=== PATIENT | female | born 2000 | race Hispanic/Latino ===

== ENCOUNTER 2024-07-22 18:00 | Inpatient (IN) | payer BC ==
[2024-07-22] MEDS ORDERED: Lidocaine 1% (PF) 30 ML VIAL SC PRN (21:15)
[2024-07-22] MEDS ORDERED: Carboprost 250 MCG/ML AMP IM PRN (21:15)
[2024-07-22] MEDS ORDERED: Diphenoxylate HCl/Atropine Tablet PO PRN (21:15)
[2024-07-22] MEDS ORDERED: Ondansetron PF 4 MG/2 ML Vial IVP PRN (21:15)
[2024-07-22] MEDS ORDERED: hydrALAZINE 20 MG/ML VIAL SLOW IVP PRN (21:15)
[2024-07-22] MEDS ORDERED: Promethazine HCl 25 MG/ML VIAL IM PRN (21:15)
[2024-07-22 21:42] LABS: Hematocrit 35.7 % (34.9-44.5); Hemoglobin 11.3 g/dL (12.0-15.5); Mean Corpuscular HGB CONC 31.7 g/dL (32.0-36.0); Mean Corpuscular Volume 85.2 fL (81.6-98.3); Mean Platelet Volume 10.7 fL (7.4-10.4); Platelet Count 241 10x3/uL (150-450); RBC Distribution Width 15.9 % (11.5-14.5); Red Blood Cell (RBC) Count 4.19 10x6/uL (3.90-5.03); White Blood Cell (WBC) Count 8.1 10x3/uL (3.5-10.5)
[2024-07-22] MEDS: Lactated Ringer's 1,000 ML IV SCH (21:45)
[2024-07-22] MEDS ORDERED: Methylergonovine 0.2 MG/ML VIAL IM PRN (21:54)
[2024-07-22] MEDS: Misoprostol 100 MCG TAB VAG SCH (22:05)
[2024-07-22 22:09] LABS: HBsAg Index 0.27 S/CO (0-0.99); Hep B Surf Ag - L&D Non-Reactive S/CO (NonReactive)
[2024-07-22 22:10] LABS: Syphilis Antibody Nonreactive (Nonreactive); Syphilis Antibody Index 0.12 S/CO (<1.00 Non-Reactive)
[2024-07-23] MEDS: Acetaminophen 500 MG TAB PO PRN (00:32)
[2024-07-23] MEDS: Oxytocin 30 units/NS 500 ML 500 ML IV SCH (01:27)
[2024-07-23] MEDS: fentaNYL/Ropivacaine Epidural 100 ML ONE (05:16)
[2024-07-23] MEDS ORDERED: Moisturizing Cream (Eucerin) 113 GM JAR TOP PRN (05:32)
[2024-07-23] MEDS ORDERED: Lactated Ringer's 500 ML IV PRN (05:32)
[2024-07-23] MEDS ORDERED: Ondansetron PF 4 MG/2 ML Vial IVP PRN (05:32)
[2024-07-23] MEDS ORDERED: Acetaminophen 325 MG TAB PO PRN (05:32)
[2024-07-23] MEDS ORDERED: Promethazine HCl 25 MG/ML VIAL IM PRN (05:32)
[2024-07-23] MEDS ORDERED: Naloxone HCl 0.4 mg/ml Vial IVP PRN ×2 (05:32)
[2024-07-23] MEDS ORDERED: ePHEDrine Sulfate 50 MG/10 ML VIAL SLOW IVP PRN (05:32)
[2024-07-23] MEDS ORDERED: Communication Order-Pharmacy FS SCH (05:45)
[2024-07-23] MEDS: diphenhydrAMINE 50 MG/ML VIAL IVP PRN (19:33)
[2024-07-23] MEDS: Calcium Carbonate 500 MG ChewTAB PO SCH (19:43)
[2024-07-23] MEDS: fentaNYL 2 mcg/Ropivacaine 0.2% Epidural 100 ML CADD EPIDURAL SCH (23:22)
[2024-07-24] MEDS: Tranexamic Acid 1,000 MG/10 ML VIAL IVP PRN (04:15)
[2024-07-24] MEDS: Oxytocin 30 units/NS 500 ML 500 ML IV SCH (04:30)
[2024-07-24] MEDS ORDERED: Preparation H Ointment 28 GM TUBE PR PRN (05:08)
[2024-07-24] MEDS ORDERED: Lanolin Ointment 7 GM TUBE TOP PRN (05:08)
[2024-07-24] MEDS ORDERED: Bisacodyl 10 MG SUPP PR PRN (05:08)
[2024-07-24] MEDS ORDERED: Milk Of Magnesia 30 ML UDCUP PO PRN (05:08)
[2024-07-24] MEDS ORDERED: hydrALAZINE 20 MG/ML VIAL SLOW IVP PRN (05:08)
[2024-07-24] MEDS ORDERED: Bisacodyl 5 MG TAB PO PRN (05:24)
[2024-07-24] MEDS ORDERED: HYDROcodone/Acetaminophen 5/325 mg Tablet PO PRN (05:28)
[2024-07-24] MEDS ORDERED: Ibuprofen 800 MG TAB PO SCH ×2 (05:30→22:00)
[2024-07-24] MEDS ORDERED: Tranexamic Acid 1,000 MG in Sodium Chloride 0.9% 250 ML 250 ML IVPB ONE (05:32)
[2024-07-24] MEDS: Misoprostol 200 MCG TAB PR PRN (05:43)
[2024-07-24 05:51] LABS: #Basophils 0.03 10x3/uL (0.0-0.2); #Eosinophils 0.17 10x3/uL (0.0-0.5); #Monocytes 0.73 10x3/uL (0.0-1.1); #Neutrophils 14.17 10x3/uL (1.5-8.4); %Basophils 0.2 % (0.0-2.0); %Eosinophils 1.1 % (0.0-6.0); %Lymphocytes 5.8 % (18.0-47.0); %Monocytes 4.5 % (0.0-10.0); %Neutrophils 87.9 % (40.0-75.0); Hematocrit 28.3 % (34.9-44.5); Hemoglobin 9.1 g/dL (12.0-15.5); Mean Corpuscular HGB CONC 32.2 g/dL (32.0-36.0); Mean Corpuscular Hemoglobin 27.5 pg (27.0-33.0); Mean Corpuscular Volume 85.5 fL (81.6-98.3); Mean Platelet Volume 10.6 fL (7.4-10.4); Platelet Count 195 10x3/uL (150-450); RBC Distribution Width 16.1 % (11.5-14.5); Red Blood Cell (RBC) Count 3.31 10x6/uL (3.90-5.03); White Blood Cell (WBC) Count 16.1 10x3/uL (3.5-10.5)
[2024-07-24] MEDS: Ibuprofen 800 MG TAB PO PRN (05:59)
[2024-07-24] MEDS ORDERED: Bupivacaine/Epinephrine 0.25% 30 ML VIAL ONE (06:00)
[2024-07-24] MEDS ORDERED: Piperacillin/Tazobactam 4.5 GM in Sodium Chloride 0.9% 100 ML IVPB SCH (06:00)
[2024-07-24 06:09] LABS: D-Dimer Test 5.27 mcg/mL (0.19-0.50); Prothrombin Time 10.7 sec (9.5-12.1)
[2024-07-24] MEDS: Piperacillin/Tazobactam 3.375 GM in Sodium Chloride 0.9% 100 ML IVPB SCH (06:40)
[2024-07-24] MEDS: HYDROcodone/Acetaminophen 5/325 mg Tablet PO PRN (07:26)
[2024-07-24] MEDS: Polyethylene Glycol 3350 17 GM Packet PO SCH (08:31)
[2024-07-24] MEDS: Ferrous Sulfate 325 MG TAB PO SCH (08:31)
[2024-07-24] MEDS: Docusate 100 MG CAP PO SCH (08:31)
[2024-07-24] MEDS: fentaNYL 50 mcg/mL 1 mL Vial ONE (10:38)
[2024-07-24] MEDS: Measles/Mumps/Rubella 10 MCG/0.5 ML VIAL SC ONE (11:38)
[2024-07-24] MEDS: Boostrix 0.5 ML (Tdap) VIAL (>/=7 yrs of age) IM ONE (11:47)
[2024-07-24] MEDS ORDERED: Simethicone Chewable 80 MG TAB PO PRN (15:39)
[2024-07-24] MEDS: Benzocaine-Menthol 82.5 ML CAN TOP PRN (17:36)
[2024-07-24] MEDS: Ibuprofen 800 MG TAB PO SCH (21:35)
[2024-07-25 07:39] VITALS: BP 97/55; TEMP 97.5
[2024-07-25] MEDS: Measles/Mumps/Rubella 10 MCG/0.5 ML VIAL SC ONE (15:20)
== END 2024-07-25 17:10 | disposition home or self-care (01) | DRG 768 ==
LOC: CSHLD 20:54 → CSHPP 07-24 08:10
PROVIDERS: ADMIT Family Medicine; ATTEND Family Medicine
PROC: 10E0XZZ Delivery of Products of Conception, External Approach (ICD-10-PCS; principal; 2024-07-24)
PROC: 0DQR0ZZ Repair Anal Sphincter, Open Approach (ICD-10-PCS; 2024-07-24)
PROC: 0UQC7ZZ Repair Cervix, Via Natural or Artificial Opening (ICD-10-PCS; 2024-07-24)
DX: O99.02 Anemia complicating childbirth (principal); Z37.0 Single live birth; O70.21 Third degree perineal laceration during delivery, IIIa; O72.1 Other immediate postpartum hemorrhage; O71.3 Obstetric laceration of cervix; Z3A.39 39 weeks gestation of pregnancy; O36.63X0 Maternal care for excessive fetal growth, third trimester, not applicable or unspecified; D64.9 Anemia, unspecified
CPT/HCPCS: 36415; 51701; 51702; 85025; 85027; 85049; 85300; 85362; 85384; 85610; 85730; 86780; 86850; 86900; 86901; 87340; 90707; 99285; J1200; J2543; J2590; J3010; J7120